=== PATIENT | male | born 1955 | race Caucasian/White ===

== ENCOUNTER 2018-11-16 11:40 | Emergency (ER) | payer OTHER ==
[2018-11-16] MEDS ORDERED: Heparin 1,000 UNITS/ML VIAL ONE ×2 (11:53→11:54)
[2018-11-16] MEDS ORDERED: Heparin 25,000 units/D5W 500 ML ONE (11:53)
[2018-11-16] MEDS ORDERED: Nitroglycerin 0.4 MG TAB 1 EACH ONE (12:08)
[2018-11-16] MEDS ORDERED: Nitroglycerin 2% Ointment 1 INCH/1 GM Packet ONE (12:08)
[2018-11-16 12:26] LABS: Prothrombin Time 13.7 SEC (12.0-14.7)
[2018-11-16 12:29] LABS: #Basophils 0.1 thou/uL (0.0-0.2); #Eosinphils 0.3 thou/uL (0.0-0.7); #Lymphocytes 3.3 thou/uL (1.20-3.40); #Monocytes 0.9 thou/uL (0.11-0.59); #Neutrophils 5.6 thou/uL (1.40-6.50); %Basophils 0.7 % (0.0-1.0); %Eosinophils 2.6 % (0.0-10.0); %Lymphocytes 32.5 % (21.0-51.0); %Monocytes 8.7 % (0.0-10.0); %Neutrophils 55.5 % (42.0-75.0); Hemoglobin 11.1 g/dL (14.0-18.0); Mean Corpuscular HGB CONC 32.3 g/dL (32.0-36.0); Mean Corpuscular Hemoglobin 28.8 pg (27.0-31.0); Mean Corpuscular Volume 89.3 fL (78.0-98.0); Mean Platelet Volume 8.4 fL (7.4-10.4); Platelet Count 245 thou/uL (130-400); RBC Distribution Width 12.1 % (11.5-14.5); Red Blood Cell (RBC) Count 3.86 mill/uL (4.70-6.10); White Blood Cell (WBC) Count 10.1 thou/uL (4.8-10.8)
[2018-11-16 12:51] LABS: ALT (SGPT) 11 U/L (8-55); AST (SGOT) 18 U/L (5-34); Alkaline Phosphatase 113 U/L (40-150); Anion Gap 14 mmol/L (10-20); BUN (Urea Nitrogen) 29 mg/dL (8.4-25.7); Bilirubin, Total 0.3 mg/dL (0.2-1.2); CK (CPK) 134 U/L (30-200); Calc. Creatinine Clearance 0 mL/min (70-130); Carbon Dioxide 23 mmol/L (23-31); Chloride 107 mmol/L (98-107); Estimated GFR-MDRD 43; Globulin 4.1 g/dL (2.4-3.5); Glucose 202 mg/dL (80-115); Lipase 21 U/L (8-78); Potassium 4.6 mmol/L (3.5-5.1); Protein, Total 8.1 g/dL (5.8-8.1); Sodium 139 mmol/L (136-145)
--- NOTE | 2018-11-16 12:59 | RAD ---
RADIOGRAPH CHEST 1 VIEW: HISTORY: A 63-year-old male with chest pain. FINDINGS: There are no air space densities, pulmonary edema, pneumothorax, or cardiomegaly. The lateral costop hrenic angles are sharp. There are sternotomy wires. IMPRESSION: 1. No acute cardiopulmonary findings. 2. Evidence of previous open heart surgery. burke [] POS: [facility]
[2018-11-16] MEDS ORDERED: Metoprolol Tartrate 5 MG/5 ML VIAL ONE (14:36)
[2018-11-16] MEDS ORDERED: hydrALAZINE 20 MG/ML VIAL ONE (18:37)
[2018-11-16 19:05] LABS: INR-International Normal Ratio 1.1; PTT 49.4 SEC (22.9-36.1); Prothrombin Time 13.9 SEC (12.0-14.7)
[2018-11-16 19:20] LABS: Troponin I 0.013 ng/mL (< 0.028)
== END 2018-11-16 18:50 | disposition short-term general hospital (02) ==
LOC: ERS 11:40
DX: R07.9 Chest pain, unspecified (principal); I11.0 Hypertensive heart disease with heart failure; I50.9 Heart failure, unspecified; E11.9 Type 2 diabetes mellitus without complications; E78.5 Hyperlipidemia, unspecified; F41.9 Anxiety disorder, unspecified; F32.9 Major depressive disorder, single episode, unspecified; Z87.891 Personal history of nicotine dependence
CPT/HCPCS: 36415; 71045; 80053; 82550; 83690; 83880; 84484; 85025; 85610; 85730; 93005; 94760; 96365; 96366; 96375; J0360; J1644